=== PATIENT | male | born 1960 | race Caucasian/White ===

== ENCOUNTER 2017-11-21 14:06 | Emergency (ER) | payer SELFPAY ==
[~2017-11-21] VITALS: Ht 177.8 cm; Wt 59.9 kg
[2017-11-21 14:09] VITALS: BP_SYST 154
== END 2017-11-21 14:34 ==
LOC: SED 14:06
DX: S00.81XA Abrasion of other part of head, initial encounter (principal); R03.0 Elevated blood-pressure reading, without diagnosis of hypertension; V19.3XXA Pedal cyclist (driver) (passenger) injured in unspecified nontraffic accident, initial encounter; Y93.I9 Activity, other involving external motion; Y92.488 Other paved roadways as the place of occurrence of the external cause; Y99.8 Other external cause status
CPT/HCPCS: 99283